=== PATIENT | male | born 1990 | race Caucasian/White ===

== ENCOUNTER 2017-09-17 11:28 | Emergency (ER) | payer OTHER ==
--- NOTE | 2017-09-17 12:09 | EDM.PDOC ---
ED HPI GENERAL MEDICAL PROBLEM - General Chief Complaint: ENT Problem Stated Complaint: SORE THROAT Time Seen by Provider: 09/17/17 12:03 - History of Present Illness INITIAL COMMENTS - FREE TEXT/NARRATIVE: HISTORY AND PHYSICAL: History of present illness: Patient is 27-year-old male presents with concern of sore throat and ear pain and eye redness and irritation. She also had a mild nonproductive cough he denies shortness of breath vomiting diarrhea fever or chills. Review of systems: As per history of present illness and below otherwise all systems reviewed and negative. Past medical history: As per history of present illness and as reviewed below otherwise noncontributory. Surgical history: As per history of present illness and as reviewed below otherwise noncontributory. Social history: No reported history of drug or alcohol abuse. Family history: As per history of present illness and as reviewed below otherwise noncontributory. Physical exam: HEENT: Atraumatic, normocephalic, pupils reactive, and gingiva injected bilaterally no evidence of foreign body or corneal abrasion negative for conjunctival pallor or scleral icterus, mucous membranes moist, throat injected with 2+ tonsils, neck supple, nontender, trachea midline. TM injected bilaterally left greater than right ethmoid reflux Lungs: Clear to auscultation, breath sounds equal bilaterally, chest nontender. Heart: S1S2, regular, negative for clicks, rubs, or JVD. Abdomen: Soft, nondistended, nontender. Negative for masses or hepatosplenomegaly. Negative for costovertebral tenderness. Pelvis: Stable nontender. Genitourinary: Deferred. Rectal: Deferred. Extremities: Atraumatic, negative for cords or calf pain. Neurovascular unremarkable. Neuro: Awake, alert, oriented. Cranial nerves II through XII unremarkable. Cerebellum unremarkable. Motor and sensory unremarkable throughout. Exam nonfocal. Diagnostics: None Therapeutics: None Impression: #1 bilateral otitis media #2 pharyngitis #3 conjunctivitis Definitive disposition and diagnosis as appropriate pending reevaluation and review of above. - Related Data Allergies Allergy/AdvReac Type Severity Reaction Status Date / Time No Known Allergies Allergy Verified 02/25/14 18:40 Home Meds: Home Meds . [No Known Home Meds] 02/25/14 [History] Past Medical History - Past Health History Medical/Surgical History: Denies Medical/Surgical History Social & Family History - Recreational Drug Use Recreational Drug Use: No ED ROS GENERAL - Review of Systems Review Of Systems: ROS reveals no pertinent complaints other than HPI. ED EXAM, GENERAL - Physical Exam Exam: See Below (See dictation) Departure - Departure Time of Disposition: 12:08 Disposition: Home, Self-Care 01 Condition: Good Clinical Impression: Otitis media, Pharyngitis, Conjunctivitis - Discharge Information Referrals: PCP,None [Primary Care Provider] - Additional Instructions: The following information is given to patients seen in the emergency department who are being discharged to home. This information is to outline your options for follow-up care. We provide all patients seen in our emergency department with a follow-up referral. The need for follow-up, as well as the timing and circumstances, are variable depending upon the specifics of your emergency department visit. If you don't have a primary care physician on staff, we will provide you with a referral. We always advise you to contact your personal physician following an emergency department visit to inform them of the circumstance of the visit and for follow-up with them and/or the need for any referrals to a consulting specialist. The emergency department will also refer you to a specialist when appropriate. This referral assures that you have the opportunity for followup care with a specialist. All of these measure are taken in an effort to provide you with optimal care, which includes your followup. Under all circumstances we always encourage you to contact your private physician who remains a resource for coordinating your care. When calling for followup care, please make the office aware that this follow-up is from your recent emergency room visit. If for any reason you are refused follow-up, please contact the [facility] emergency department at and asked to speak to the emergency department charge nurse. [facility] [address] [place] [id number] TobraDex Augmentin as prescribed push fluids Motrin/Tylenol as directed follow- up primary medical doctor and/or clinical follow-up call to schedule routine appointment and return as needed as discussed
== END 2017-09-17 12:34 | disposition home or self-care (01) ==
LOC: MW.ED 11:28
DX: J02.9 Acute pharyngitis, unspecified (principal); H66.93 Otitis media, unspecified, bilateral; H10.9 Unspecified conjunctivitis
CPT/HCPCS: 99282; 99283

== ENCOUNTER 2019-06-18 10:14 | Emergency (ER) | payer BC ==
--- NOTE | 2019-06-18 10:26 | EDM.PDOC ---
ED HPI GENERAL MEDICAL PROBLEM - General Chief Complaint: Abdominal Pain Stated Complaint: ABD PAIN Time Seen by Provider: 06/18/19 10:16 Source of Information: Reports: Patient History Limitations: Reports: No Limitations - History of Present Illness INITIAL COMMENTS - FREE TEXT/NARRATIVE: HISTORY AND PHYSICAL: History of present illness: Patient is a 28-year-old male who presents to the emergency room with complaints of right upper quadrant pain. He states that the pain has been ongoing for approximately an hour and a half. He describes it as a sharp cramping pain which does not radiate or improved/get worse with any variables. States he has not yet eaten this morning. Patient denies any fever, chills, headache, change in vision, syncope or near syncope. Denies any chest pain, back pain, shortness of breath or cough. Denies any nausea, vomiting, diarrhea, constipation or dysuria. Has not noted any blood in urine or stool. Patient has been eating and drinking appropriately. Review of systems: As per history of present illness and below otherwise all systems reviewed and negative. Past medical history: As per history of present illness and as reviewed below otherwise noncontributory. Surgical history: As per history of present illness and as reviewed below otherwise noncontributory. Social history: See social history for further information Family history: As per history of present illness and as reviewed below otherwise noncontributory. Physical exam: General: Well-developed and well-nourished 28-year-old male. Alert and oriented. Nontoxic appearing and in no acute distress. HEENT: Atraumatic, normocephalic, pupils equal and reactive bilaterally, negative for conjunctival pallor or scleral icterus, mucous membranes moist, nontender, trachea midline. No drooling or trismus noted. No meningeal signs. No hot potato voice noted. Lungs: Clear to auscultation, breath sounds equal bilaterally, chest nontender. Heart: S1S2, regular rate and rhythm without overt murmur Abdomen: Soft, nondistended, mild upper quadrant tenderness. Negative for masses or hepatosplenomegaly. Negative for costovertebral tenderness. Pelvis: Stable nontender. Skin: Intact, warm, dry. No lesions or rashes noted. Extremities: Atraumatic, moves all extremities per self without difficulty or deficits, negative for cords or calf pain. Neurovascular unremarkable. Neuro: Awake, alert, oriented. Cranial nerves II through XII unremarkable. Cerebellum unremarkable. Motor and sensory unremarkable throughout. Exam nonfocal. Notes: Within 20-30 minutes of being here the patient has had some nausea and a few episodes of vomiting. We'll establish an IV and give some medications for that at this time. CT of the abdomen and pelvis has been added. Minimal right-sided hydronephrosis with a 2 mm right UVJ calculus. Lab work is unremarkable. We discussed signs and symptoms that would prompt him to return to the emergency room. He'll follow-up with urology. Supportive care measures were reviewed and discussed. Voices understanding and is agreeable to plan of care. Denies any further questions or concerns at this time. Diagnostics: CBC, CMP, Lipase, UA, abd/pelvis CT Therapeutics: Toradol IM, Zofran, Morphine, Rocephin, IV fluids, Flomax Prescription: Flomax, [place], Zofran Impression: Renal Calculus, Right Plan: 1. Increase your oral fluids. Take the medications as prescribed. 2. Please follow-up with urology as we discussed. Return to the ED as needed and as discussed. Definitive disposition and diagnosis as appropriate pending reevaluation and review of above. right abd Pain Score (Numeric/FACES): 8 - Related Data Allergies Allergy/AdvReac Type Severity Reaction Status Date / Time No Known Allergies Allergy Verified 06/18/19 10:24 Home Meds: Home Meds Acetaminophen/HYDROcodone [[place] 325-5 MG] 1 dose PO Q4H #20 tablet 06/18/19 [Rx ] Ondansetron [Zofran ODT] 4 mg PO Q6H PRN #8 tab.dis 06/18/19 [Rx] Tamsulosin [Tamsulosin 24 Hr] 0.4 mg PO DAILY #10 cap.er 06/18/19 [Rx] Past Medical History - Past Health History Medical/Surgical History: Denies Medical/Surgical History - Infectious Disease History Infectious Disease History: Reports: None Social & Family History - Family History Family Medical History: Noncontributory Endocrine/Metabolic: Reports: Diabetes, Type I - Caffeine Use Caffeine Use: Reports: Coffee, Energy Drinks, Soda, Tea ED ROS GENERAL - Review of Systems Review Of Systems: Comprehensive ROS is negative, except as noted in HPI. ED EXAM, GI/ABD - Physical Exam Exam: See Below (See dictation) Course - Vital Signs Last Recorded V/S: Last Vital Signs Temp 96.9 F 06/18/19 10:22 Pulse 79 06/18/19 11:56 Resp 18 06/18/19 11:56 BP 131/77 06/18/19 11:56 Pulse Ox 98 06/18/19 11:56 - Orders/Labs/Meds Labs: Laboratory Tests 06/18/19 06/18/19 06/18/19 Range/Units 10:40 10:40 12:35 WBC 11.20 H (4.0-11.0) K/uL RBC 5.30 (4.50-5.90) M/uL Hgb 15.8 (13.0-17.0) g/dL Hct 47.4 (38.0-50.0) % MCV 89.4 (80.0-98.0) fL MCH 29.8 (27.0-32.0) pg MCHC 33.3 (31.0-37.0) g/dL RDW Std Deviation 45.4 (28.0-62.0) fl RDW Coeff of Addi 14 (11.0-15.0) % Plt Count 216 (150-400) K/uL MPV 9.90 (7.40-12.00) fL Neut % (Auto) 66.9 (48.0-80.0) % Lymph % (Auto) 24.1 (16.0-40.0) % [place] % (Auto) 7.1 (0.0-15.0) % Eos % (Auto) 1.7 (0.0-7.0) % Baso % (Auto) 0.2 (0.0-1.5) % Neut # (Auto) 7.5 H (1.4-5.7) K/uL Lymph # (Auto) 2.7 H (0.6-2.4) K/uL [place] # (Auto) 0.8 (0.0-0.8) K/uL Eos # (Auto) 0.2 (0.0-0.7) K/uL Baso # (Auto) 0.0 (0.0-0.1) K/uL Nucleated RBC % 0.0 /100WBC Nucleated RBCs # 0 K/uL Sodium 140 (136-148) mmol/L Potassium 4.4 (3.5-5.1) mmol/L Chloride 105 (98-107) mmol/L Carbon Dioxide 26.1 (21.0-32.0) mmol/L BUN 17 (7.0-18.0) mg/dL Creatinine 0.9 (0.8-1.3) mg/dL Est Cr Clr Drug Dosing 108.19 mL/min Estimated GFR (MDRD) > 60.0 ml/min Glucose 130 H (74-106) mg/dL Calcium 9.1 (8.5-10.1) mg/dL Total Bilirubin 0.9 (0.2-1.0) mg/dL AST 24 (15-37) IU/L ALT 48 (14-63) IU/L Alkaline Phosphatase 111 (46-116) U/L Total Protein 7.7 (6.4-8.2) g/dL Albumin 4.1 (3.4-5.0) g/dL Globulin 3.6 (2.6-4.0) g/dL Albumin/Globulin Ratio 1.1 (0.9-1.6) Lipase 57 L (73-393) U/L Urine Color YELLOW Urine Appearance CLEAR Urine pH 5.0 (5.0-8.0) Ur Specific [place] <= 1.005 (1.001-1.035) Urine Protein NEGATIVE (NEGATIVE) mg/dL Urine Glucose (UA) NEGATIVE (NEGATIVE) mg/dL Urine Ketones NEGATIVE (NEGATIVE) mg/dL Urine Occult Blood MODERATE H (NEGATIVE) Urine Nitrite NEGATIVE (NEGATIVE) Urine Bilirubin NEGATIVE (NEGATIVE) Urine Urobilinogen 0.2 (<2.0) EU/dL Ur Leukocyte Esterase NEGATIVE (NEGATIVE) Urine RBC 0-1 (0-2/HPF) Urine WBC 0-1 (0-5/HPF) Ur Squamous Epith Cells NOT SEEN Urine Bacteria NOT SEEN (NEGATIVE) Meds: Medications Discontinued Medications Generic Name Dose Route Start Last Admin Trade Name Freq PRN Reason Stop Dose Admin Sodium Chloride 1,000 mls @ 999 mls/hr 06/18/19 11:44 06/18/19 11:53 Normal Saline IV 06/18/19 12:44 999 mls/hr STAT ONE Administration Ceftriaxone Sodium/Dextrose 1 50 mls @ 100 mls/hr 06/18/19 12:20 06/18/19 12: 29 gm/ Premix IV 06/18/19 12:49 100 mls/hr ONETIME ONE Administration Iopamidol 100 ml 06/18/19 11:47 06/18/19 11:48 Isovue Multipack-370 (76%) IVPUSH 06/18/19 11:48 100 ml ONETIME STA Administration Ketorolac Tromethamine 60 mg 06/18/19 10:27 06/18/19 10:55 Toradol IM 06/18/19 10:28 60 mg ONETIME ONE Administration Morphine Sulfate 2 mg 06/18/19 11:44 06/18/19 11:52 Morphine IVPUSH 06/18/19 11:45 2 mg ONETIME ONE Administration Ondansetron HCl 4 mg 06/18/19 11:44 06/18/19 11:49 Zofran IVPUSH 06/18/19 11:45 4 mg ONETIME ONE Administration Ondansetron HCl 4 mg 06/18/19 11:44 06/18/19 12:29 Zofran IVPUSH 06/18/19 11:45 Not Given ONETIME ONE Tamsulosin HCl 0.4 mg 06/18/19 12:23 06/18/19 12:29 Flomax PO 06/18/19 12:24 0.4 mg ONETIME ONE Administration Departure - Departure Time of Disposition: 12:58 Disposition: Home, Self-Care 01 Clinical Impression: Kidney stone on right side - Discharge Information Prescriptions: Acetaminophen/HYDROcodone [[place] 325-5 MG] 1 dose PO Q4H #20 tablet Ondansetron [Zofran ODT] 4 mg PO Q6H PRN #8 tab.dis PRN Reason: Nausea Tamsulosin [Tamsulosin 24 Hr] 0.4 mg PO DAILY #10 cap.er Instructions: Kidney Stones, [id number] Referrals: PCP,None [Primary Care Provider] - Forms: ED Department Discharge Additional Instructions: The following information is given to patients seen in the emergency department who are being discharged to home. This information is to outline your options for follow-up care. We provide all patients seen in our emergency department with a follow-up referral. The need for follow-up, as well as the timing and circumstances, are variable depending upon the specifics of your emergency department visit. If you don't have a primary care physician on staff, we will provide you with a referral. We always advise you to contact your personal physician following an emergency department visit to inform them of the circumstance of the visit and for follow-up with them and/or the need for any referrals to a consulting specialist. The emergency department will also refer you to a specialist when appropriate. This referral assures that you have the opportunity for follow-up care with a specialist. All of these measure are taken in an effort to provide you with optimal care, which includes your follow-up. Under all circumstances we always encourage you to contact your private physician who remains a resource for coordinating your care. When calling for follow-up care, please make the office aware that this follow-up is from your recent emergency room visit. If for any reason you are refused follow-up, please contact the [facility] Emergency Department at and asked to speak to the emergency department charge nurse. [facility] Primary Care [address] [place] [id number] [facility] Specialty Care - Urology [address] [place] [id number] 1. Increase your oral fluids. Take the medications as prescribed. 2. Please follow-up with urology as we discussed. Return to the ED as needed and as discussed.
[2019-06-18] MEDS ORDERED: Ketorolac 60 MG/2 ML SDV IM ONE (10:27)
[2019-06-18 11:12] LABS: BLOOD UREA NITROGEN,BUN 17 mg/dL (7.0-18.0); CARBON DIOXIDE,CO2 26.1 mmol/L (21.0-32.0); CHLORIDE,CL 105 mmol/L (98-107); GLUCOSE RANDOM 130 mg/dL (74-106); LIPASE 57 U/L (73-393); POTASSIUM,K 4.4 mmol/L (3.5-5.1); SODIUM,NA 140 mmol/L (136-148)
[2019-06-18] MEDS ORDERED: Sodium Chloride 0.9% 1,000 ML IV ONE (11:44)
[2019-06-18] MEDS ORDERED: Morphine 2 MG/ML Syringe IVPUSH ONE (11:44)
[2019-06-18] MEDS ORDERED: Ondansetron 4 MG/2 ML SDV IVPUSH ONE ×2 (11:44)
[2019-06-18] MEDS ORDERED: Iopamidol 755 MG/ML 500 ML Multipack Bottle IVPUSH STA (11:47)
--- NOTE | 2019-06-18 12:14 | CT ---
Indication: Right-sided abdominal pain with vomiting. Technique: Multiple contiguous axial images were obtained from the lung bases is symphysis pubis after intravenous administration 100 cc Isovue 370. Please note that all CT scans at this facility use dose modulation, iterative reconstruction, and/or weight-based dosing when appropriate to reduce radiation dose to as low as reasonably achievable. Comparison: July 11, 2018. Findings: The lung bases are clear. Heart is normal size. No pericardial effusion is identified. The liver, gallbladder, spleen, pancreas, adrenals, and kidneys are normal. No intrahepatic biliary ductal dilatation is identified. No hydronephrosis is seen. There is minimal new prominence should the beam renal collecting system. No renal calculi are identified. A 2 millimeter distal right ureteral calculus is identified. This is best seen on image 143, series 201. This is at the ureteral vesicular junction. In the pelvis, the urinary bladder is normal. The small and large bowel are normal in caliber. The appendix is normal in size. No inflammatory changes are identified in the right lower quadrant. No free air or free fluid is identified within the abdomen or pelvis. The aorta is normal in caliber. Impression: Minimal right-sided hydronephrosis with a 2 millimeter right UVJ calculus Please note that all CT scans at this facility use dose modulation, iterative reconstruction, and/or weight-based dosing when appropriate to reduce radiation dose to as low as reasonably achievable. Dictated by Nicci Jaquez MD @ Jun 18 2019 12:06PM Signed by Dr. Nicci Jaquez @ Jun 18 2019 12:13PM
[2019-06-18] MEDS ORDERED: cefTRIAXone 1 GM in Premix Bag 1 BAG IV ONE (12:20)
[2019-06-18] MEDS ORDERED: Tamsulosin 0.4 MG Cap.ER PO ONE (12:23)
== END 2019-06-18 13:32 | disposition home or self-care (01) ==
LOC: MW.ED 10:14
DX: N13.2 Hydronephrosis with renal and ureteral calculous obstruction (principal); Z79.899 Other long term (current) drug therapy
CPT/HCPCS: 36415; 74177; 80053; 81001; 83690; 85025; 96361; 96365; 96372; 96375; 99284; A9270; J0696; J1885; J2270; J2405; J7040; Q9967